=== PATIENT | male | born 1985 | race Caucasian/White ===

== ENCOUNTER 2025-04-26 14:12 | Emergency (ER) | payer OTHER ==
[~2025-04-26] VITALS: Ht 172.7 cm; Wt 67.1 kg
[2025-04-26 14:23] VITALS: BP 113/63; TEMP 98.2; O2SAT 95
== END 2025-04-26 15:04 | disposition home or self-care (01) ==
LOC: ER 14:25
DX: U07.1 COVID-19 (principal); F17.210 Nicotine dependence, cigarettes, uncomplicated
CPT/HCPCS: 71045-TC